=== PATIENT | female | born 1950 | race African-American/Black ===

== ENCOUNTER 2016-12-16 12:15 | Outpatient (CLI) | payer MEDICARE, OTHER ==
[~2016-12-16 12:15] MED LIST: AMLO5TAB PO; BENADRYL 50MG C50 MG PO; CARDIZEM CD120 MG PO; CLONAZEPAM 1MG T1 MG PO; CLONAZEPAM0.5 M1 PO; CLONAZEPAM0.5 M3 PO; CORICIDIN HBP C1 TAB PO; CORICIDIN HBP355 ML PO; EC NAPROSYN500 MG PO; FAMOTIDINE20 MG PO; GABAPENTIN100 M1 PO; HYDROCHLOROTHIA25 M1 PO; HYDROXYZINE 25M25 MG PO; KEFLEX 500MG.500 MG PO; LAMICTAL1 TAB PO; LAMICTAL150 MG PO; LAMOTRIGINE150 MG PO; LISINOPRIL10 MG PO; MEDROL 4MG. DOSE4 MG PO; PHENERGAN VC +120 ML PO; SINGULAIR10 MG PO; SULFAMETHOXAZOL1 TA6 PO; TIMOPTIC OCUDOSE0.5% OP; TRAZODONE 50MG50 MG PO; TRAZODONE HCL50 MG PO; TRAZODONE100 MG PO; VICODIN 5/500 T1 TAB PO; VOLTAREN75 MG OR; WELLBUTRIN XL150 MG PO; ZITHROMAX Z-PA250 M1 PO; ZOFRAN ODT4 MG PO; ZOFRAN4 MG PO; ZYRTEC10 M2 PO
[2016-12-16 13:00] VITALS: BP 144/73
== END 2016-12-16 13:00 | disposition home or self-care (01) ==
LOC: COP 12:15
DX: L50.0 Allergic urticaria (principal)
CPT/HCPCS: J2357

== ENCOUNTER 2017-03-17 12:05 | Outpatient (CLI) | payer MEDICARE, OTHER ==
[2017-03-17 12:15] VITALS: BP 128/70
== END 2017-03-17 13:00 | disposition home or self-care (01) ==
LOC: COP 12:05
DX: L50.0 Allergic urticaria (principal)
CPT/HCPCS: J2357

== ENCOUNTER → 2017-03-17 | Outpatient (CLI) | payer MEDICARE, OTHER ==
--- NOTE | 2017-03-17 14:03 | RADIOLOGY REPORT PS360 ---
FEMUR-LT-2 VIEWS HISTORY: BILAT LEG PAIN ORDERING PHYSICIAN: Gian Vallecillo MD PATIENT AGE: 66 years FINDINGS: Moderate osteoarthritic changes involving the left hip with decrease in joint space superiorly, sclerosis of the acetabular roof, and osteophyte formation of the femur. These findings are slightly worse than when compared to December 15, 2015. No fracture or dislocation. No lytic or blastic change. Moderate osteoarthritic changes involve the knee joint IMPRESSION: Moderate osteoarthritic changes of the left hip slightly progressed
--- NOTE | 2017-03-17 14:04 | RADIOLOGY REPORT PS360 ---
FEMUR-RT-2 VIEWS HISTORY: Right leg pain, right hip pain BILAT LEG PAIN ORDERING PHYSICIAN: Gian Vallecillo MD PATIENT AGE: 66 years COMPARISON: December 14, 2015 FINDINGS: No fracture or dislocation. No lytic or blastic change. There are minimal osteoarthritic changes with slight decrease in the joint space medially. This is not significantly changed.. IMPRESSION: Minimal osteoarthritic change of the right hip unchanged
== END ==
LOC: RAD 12:54
DX: M79.604 Pain in right leg (principal); M79.605 Pain in left leg

== ENCOUNTER 2017-08-15 23:10 | Emergency (ER) | payer MEDICARE, OTHER ==
[~2017-08-15] VITALS: Ht 165.1 cm; Wt 72.6 kg
--- NOTE | 2017-08-15 23:27 | Emergency Room Report ---
History of Present Illness Time Seen by MD Kilgore Presenting Problem in Triage Pt arrived:Walked Presenting Problem:PRODUCTIVE COUGH, SORE THROAT FOR 3 DAYS. 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 N Clinical Suspician of Infection? N Mental Status: 1 - Regular (Normal Baseline) Sepsis Risk:Low Sepsis Risk Have you (or family members/close friends) recently traveled outside the [place]? N If Yes, where/when: Have you had exposure to infectious disease within the past month? N TB? Other? Specify: Source patient, RN notes reviewed, old records Exam Limitations no limitations Comment over the last few days with prod cough with no hemoptysis and sore throat w/o rash Cardiac Chest Pain Chest pain indicative of cardiac No Timing/Duration this evening Severity moderate ALLERGIES Coded Allergies: No Known Allergies (04/09/16) Home Medications Reported Medications Montelukast Sodium (Singulair) 10 MG PO QHS CETIRIZINE HCL (Zyrtec) 10 MG PO DAILY Hydroxyzine Pamoate (Hydroxyzine) 25 MG PO Q6HP PRN ITCHING Clonazepam 0.5 MG PO DAILY #30 Lamotrigine (Lamictal) 150 MG PO DAILY Clonazepam (Clonazepam 1MG) 1 MG PO BIDP PRN ANXIETY Diphenhydramine Hcl (Benadryl 50MG Cap) 50 MG PO Q4-6H PRN TRAZODONE HCL (Trazodone HCl) 50 MG PO DAILY HYDROCHLOROTHIAZIDE (Hydrochlorothiazide) 25 MG PO DAILY History Medical History General CAD? No Angina: No [place]: No Hypertension? Yes Hyperlipidemia? No CHF? No DVT? No PE? No COPD? No Asthma? No Anemia? No GERD? No Gastric ulcers? No GI Bleed? No Hernia? No Thyroid Problems? No Hypothyroidism? No CVA? No Seizures? No Diabetes? No Renal Insuffiency? No End Stage Renal Disease? No UTI? No Stones? No BPH? No GB Disease: No Nephritic Syndrome? No Asplenia? No Hepatitis? No Sickle Cell Disease? No Arthritis? No Migraines? No Cataracts? Yes Glaucoma? Yes MRSA? No HIV? No TB? No Anxiety? Yes Depression? Yes Cancer? No More? No Immunization Hx DT/Tetanus Unknown Surgical Hx Previous Surgery?Y HYSTERECTOMY CARPAL TUNNEL Social History Smoking Hx Smoker: Former Smoker Tobacco: No Type Cigarettes Alcohol Alcohol: No Drugs none Review of Systems All Other Systems Reviewed and Negative Constitutional see HPI, denies fever, other Eyes denies drainage ENT denies: ear discharge, epistaxis, throat pain. Respiratory see HPI, cough, denies shortness of breath, denies wheezing Cardiovascular denies chest pain, denies palpitations, denies syncope Gastrointestinal denies abdominal pain, denies diarrhea, denies vomiting Genitourinary denies: dysuria, frequency, hesitancy, hematuria. Musculoskeletal denies back pain, denies joint pain, denies joint swelling, denies neck pain Skin denies rash Psychiatric/Neurological denies headache, denies seizure Physical Exam Vital Signs Vital Signs Date Time Temp Pulse Resp B/P Pulse O2 O2 Flow FiO2 Ox Delivery Rate 08/15 2314 98.5 83 22 153/82 97 - WBC >12,000 or <4,000 or 10% bands? 2 or more SIRS Criteria Met? B/P:153/82 MAP:105 Creatinine >2.0? UA output<0.5ml/kg/hr for 2 hrs? Platelet count >100,000? Lactate >2.0mmol/1? INR >1.2 or PTT > than 60 sec? Evidence of Organ Dysfunction? Provider documented clinical suspician of infection? N Sepsis Criteria Count: 1 Sepsis Risk: Low Sepsis Risk General Appearance no apparent distress Eye Exam - bilateral eye PERRL, bilateral eye EOMI Ear, Nose, Throat pharyngeal erythema Neck supple, lymphadenopathy (L) Respiratory Status No: respiratory distress. Lung Sounds bilateral: rhonchi. Cardiovascular regular rate/rhythm, no rub, systolic murmur Peripheral Pulses Pulses normal Yes Gastrointestinal soft Extremities normal inspection Strength 4 Upper Ext (L), 4 Upper Ext (R), 4 Lower Ext (L), 4 Lower Ext (R) Neurologic alert, medical services manager II-XII nml as tested, no motor/sensory deficits Reflexes Reflexes normal Yes Mental status normal mood/affect Skin no rash cons.w/shingles Medical Decision Making LABS/Meds/Orders Pt receiving controlled substance in ED? No Departure Departure Time of Disposition 2327 Disposition DC Home or Self Care(routine) Clinical Impression Primary Impression: Bronchitis Condition STABLE Referrals Avel MARTINEZ,A.C. (Family) Patient Instructions DI for Cough -- Adult Additional Instructions use meds and see pcp for follow up Discharge Counseling Counseled pt/family regarding diagnosis, test results, medications/RX, follow up needs Prescriptions Current Visit Scripts Prednisone (Prednisone 20MG) 20 MG PO BID #10 TAB Azithromycin (Zithromycin (Z-SUSIE) 250MG Tab) 250 MG PO DAILY #6 TAB TAKE TWO (2) TABLETS ON DAY 1, THEN ONE (1) TABLET DAY #2 THRU #5 BENZONATATE (Benzonatate) 100 MG PO TID #15 CAP ED Critical Care Critical Care No at [id number]
[2017-08-16 00:19] VITALS: BP 165/86
--- OUTSIDE RECORDS SUMMARY | 2017-08-24 12:35 | External Medical Summary Rpt ---
Author Author TONI Bailey, [employer] Organization [employer] Address Unknown Phone Unavailable
--- OUTSIDE RECORDS SUMMARY | 2017-08-24 12:35 | External Medical Summary Rpt | CCD ---
Demographics Preferred Language Iraqi Marital Status Unknown Confucianist Affiliation Unknown Race Unknown Ethnic Group Unknown Author Author , TONI MUÑOZ Address Unknown Phone Immunization Unable to retrieve immunization data due to connection failure with Immunization Registry. Please try again later.
--- OUTSIDE RECORDS SUMMARY | 2017-08-24 12:35 | External Medical Summary Rpt | CCD ---
Author Author [employer] Organization [employer] Address Unknown Phone Unavailable Purpose Continuity of Care Document - through 2016
--- OUTSIDE RECORDS SUMMARY | 2017-08-24 12:35 | External Medical Summary Rpt | CCD ---
Author Author TONI Address Unknown Phone [email or web address] Purpose Continuity of Care Document - through 2016
--- OUTSIDE RECORDS SUMMARY | 2017-08-24 12:35 | External Medical Summary Rpt | CCD ---
Author Author [employer]ONI Address Unknown Phone Purpose Continuity of Care Document - through 2016
--- OUTSIDE RECORDS SUMMARY | 2017-08-24 12:35 | External Medical Summary Rpt | CCD ---
Demographics Preferred Language [place]al[place] Marital Status Unknown Alevism Affiliation Unknown Race Unknown Ethnic Group Unknown Author Author , TONI MUÑOZ Address Unknown Phone Immunization Unable to retrieve immunization data due to connection failure with Immunization Registry. Please try again later.
== END 2017-08-16 00:22 | disposition home or self-care (01) ==
LOC: ER 23:10
DX: J20.9 Acute bronchitis, unspecified (principal); I10 Essential (primary) hypertension; F41.8 Other specified anxiety disorders; F17.210 Nicotine dependence, cigarettes, uncomplicated